=== PATIENT | female | born 1955 | race Caucasian/White ===

== ENCOUNTER 2020-12-20 10:58 | Outpatient (CLI) | payer MEDICARE, SELFPAY ==
--- NOTE | ~2020-12-20 | XR_ITS ---
EXAMINATION: XR hand BI arthritis min 3V EXAM DATE: 12/20/2020 11:42 INDICATION: M05.79 - Rheumatoid arthritis with rheumatoid factor of m... TECHNIQUE: Right hand frontal, lateral and oblique projections obtained and reviewed. Left hand fron olng, lateral and oblique projections obtained and reviewed. Catchers projection of both hands. There is no prior study for comparison. FINDINGS: Right hand: Joint spaces are uniform and symmetric. There are no bony erosions identified. There are no acute fractures identified. Left hand: Joint spaces are uniform and symmetric. There are no bony erosions identified. There are n o acute fractures identified. IMPRESSION: Unremarkable hand exam. Reviewed, dictated and finalized at location A. IMPRESSION: Unremarkable hand exam.
--- NOTE | ~2020-12-20 | XR_ITS ---
EXAMINATION: XR foot LT standing 2V EXAM DATE: 12/20/2020 11:42 INDICATION: M05.79 - Rheumatoid arthritis with rheumatoid factor of TECHNIQUE: Frontal and lateral projections of the left foot standing. Correlation is made to contral [facility] foot same date. FINDINGS: There are no bony erosions identified. There are no acute left foot fractures or dislocati ons identified. There is no subcutaneous gas. The soft tissue is unremarkable. There are no radio paque foreign bodies. 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 There are no bony erosions identified. There are small calcaneal spurs posteriorly and inferiorly. IMPRESSION: 1. Mild to moderate left midfoot osteoarthritis. 2. Small calcaneal spurs. Reviewed, dictated and finalized at location A.
--- NOTE | ~2020-12-20 | XR_ITS ---
EXAMINATION: XR foot RT standing 2V EXAM DATE: 12/20/2020 11:42 INDICATION: M05.79 - Rheumatoid arthritis with rheumatoid factor of TECHNIQUE: Frontal and lateral projections of the right foot standing. Correlation is made to contra lateral foot same date. FINDINGS: There are no bony erosions identified. There are no acute right foot fractures or dislocat ions identified. There is no subcutaneous gas. The soft tissue is unremarkable. There are no radi opaque foreign bodies. 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 Ther e are no bony erosions identified. There are small calcaneal spurs posteriorly and inferiorly. IMPRESSION: 1. Mild to moderate right midfoot osteoarthritis. 2. Small calcaneal spurs. Reviewed, dictated and finalized at location A.
[2020-12-20 12:26] LABS: Basophils Percent Auto 0.2 % (0.2-1.2); Eosinophils Absolute Auto 0.4 K/mm3 (0-0.3); Eosinophils Percent Auto 6.3 % (0-4.4); Hematocrit 41.4 % (37.0-47.0); Hemoglobin 13.8 g/dL (12.0-15.0); Immature Granulocyte Absolute 0.02 K/mm3 (0.00-0.031); Immature Granulocyte Percent A 0.3 % (0-0.5); Lymphocytes Absolute Auto 1.29 K/mm3 (0.9-3.2); Lymphocytes Percent Auto 19.5 % (18.3-44.2); Mean Corpuscular HGB Conc 33.3 g/dl (32-36); Mean Corpuscular Hemoglobin 30.1 pg (26-34); Mean Corpuscular Volume 90.2 fl (80-100); Mean Platelet Volume 8.8 fl (7.4-10.4); Monocytes Absolute Auto 0.4 K/mm3 (0.1-0.6); Monocytes Percent Auto 6.2 % (2.6-8.5); Neutrophils Absolute Auto 4.5 K/mm3 (1.3-6.7); Neutrophils Percent Auto 67.5 % (45.5-73.1); Platelet Count Result 223 k/mm3 (150-375); Red Blood Count 4.59 M/mm3 (4.2-5.4); Red Cell Distribution Width 12.9 % (11.5-14.5); White Blood Count 6.6 K/mm3 (4.5-10.0)
[2020-12-20 13:02] LABS: Creatinine Urine 177.1 mg/dL
[2020-12-20 13:15] LABS: Alanine Aminotransferase 16 U/L (4-35); Albumin Level 4.4 g/dL (3.5-5.1); Alkaline Phosphatase 66 U/L (38-126); Anion Gap 9 mmol/L (8-16); Aspartate Amino Transferase 23 U/L (14-36); Bilirubin,Total 0.7 mg/dL (0.2-1.3); Blood Urea Nitrogen 12 mg/dL (7-17); CRP 1.4 mg/dL (<1.0); Calcium 9.7 mg/dL (8.4-10.2); Carbon Dioxide 27 mmol/L (22-30); Chloride 102 mmol/L (98-107); Estimated Glomerular Filt Rate > 60; Glucose 102 mg/dL (65-110); Potassium 3.9 mmol/L (3.4-5.0); Sodium 138 mmol/L (137-145)
[2020-12-20 13:17] LABS: Complement C3 108 mg/dL (88-165)
[2020-12-20 13:50] LABS: Hepatitis B Surface Antigen Negative (Negative)
[2020-12-20 14:08] LABS: Hepatitis B Surface Anti Res Negative
[2020-12-20 14:47] LABS: Total Protein Urine Random < 5 mg/dL; Ur Ttl Prot Creatinine Ratio 0.03 mg/mg (0-0.20)
[2020-12-20 15:46] LABS: Erythrocyte Sedimentation Rate 19 mm/hr (0-20)
[2020-12-23 07:11] LABS: Angiotensin Converting Enzyme 18 U/L (9-67)
[2020-12-23 09:30] LABS: Rapid Plasma Reagin Non-Reactive (NonReactive)
[2020-12-23 09:34] LABS: SM Antibody <1.0; SM/RNP Antibody <1.0; SS-A <1.0; SS-B <1.0
[2020-12-23 23:22] LABS: ANCA Screen Negative (Negative)
[2020-12-24 20:32] LABS: Lupus dRVVT 1:1 Mix Interpreta Not Indicated; Lupus dRVVT Screen 36 sec (<=45); PTT-LA Screen 38 sec (<=40)
== END 2020-12-20 10:59 | disposition home or self-care (01) ==
PROVIDERS: Visit Provider Internal Medicine
DX: M05.79 Rheumatoid arthritis with rheumatoid factor of multiple sites without organ or systems involvement (principal); R21 Rash and other nonspecific skin eruption; M19.071 Primary osteoarthritis, right ankle and foot; M19.072 Primary osteoarthritis, left ankle and foot; M77.31 Calcaneal spur, right foot
CPT/HCPCS: 36415; 73130; 73620; 80053; 82164; 82570; 84156; 85025; 85613; 85652; 85730; 86021; 86140; 86160; 86235; 86592; 86706; 87340